=== PATIENT | male | born 1990 | race Caucasian/White ===

== ENCOUNTER 2020-07-11 23:21 | Emergency (ER) | payer SELFPAY ==
[2020-07-11 23:35] VITALS: BP 135/80; TEMP 97.8; BMI 24.4
[2020-07-12 01:29] LABS: BASO % 1.2 % (0-2.0); EOS % 2.5 % (0-4.5); HEMATOCRIT 39.7 % (35.4-49); HEMOGLOBIN 13.5 GM/dL (11.7-16.9); LYMPH % 42.4 % (8-40); MCH 28.2 pg (25.7-33.7); MCHC 34.1 g/dl (32.0-35.9); MEAN CELL VOLUME 82.8 fl (80-96); MEAN PLT VOLUME 9.9 fl (7.5-11.1); MONO % 10.4 % (3.8-10.2); NEUT % 43.5 % (42.8-82.8); PLATELET COUNT 213 K/MM3 (134-434); RDW 12.6 % (11.9-15.9); WHITE BLOOD COUNT 6.4 K/mm3 (4.0-10.0)
[2020-07-12 01:57] LABS: CHLORIDE 102 mmol/L (98-107); POTASSIUM 4.1 mmol/L (3.5-5.1); SODIUM 136 mmol/L (136-145)
[2020-07-12 02:57] LABS: ALBUMIN 3.9 g/dl (3.4-5.0); ALK PHOS 59 U/L (45-117); ANION GAP 7 MMOL/L (8-16); BILIRUBIN,TOTAL 0.4 mg/dL (0.2-1); BLOOD UREA NITROGEN 23.8 mg/dL (7-18); CO2 28 mmol/L (21-32); GLUCOSE,RANDOM 110 mg/dL (74-106); SGOT/AST 27 U/L (15-37); SGPT/ALT 29 U/L (13-61); TOT PROT 7.1 g/dl (6.4-8.2)
[2020-07-12 03:32] VITALS: PULSE 79
== END 2020-07-12 03:32 | disposition home or self-care (01) ==
LOC: JER 23:21
DX: R07.89 Other chest pain (principal)
CPT/HCPCS: 36415; 80053; 84484; 85025; 93005; 93010; 99284-25

== ENCOUNTER 2024-08-25 11:32 | Emergency (ER) | payer BC, OTHER ==
[2024-08-25 11:41] VITALS: RESP 18; BMI 23.7
[2024-08-25 12:56] LABS: ABSOLUTE IMMATURE GRANULOCYTES 0.01 x10^3/uL (0.0-0.031); BASOPHILS # 0.07 x10^3/uL (0.01-0.08); EOSINOPHIL % 3.4 % (0.8-7.0); EOSINOPHILS # 0.16 x10^3/uL (0.04-0.54); HEMATOCRIT 46.4 % (40.1-51.0); HEMOGLOBIN 14.9 g/dL (13.7-17.5); MCHC 32.1 g/dl (32.3-36.5); MEAN CELL VOLUME 86.4 fl (79.0-92.2); MEAN PLT VOLUME 9.8 fl (9.4-12.4); MONOCYTE # 0.41 x10^3/uL (0.30-0.82); MONOCYTE % 8.7 % (5.3-12.2); PLATELET COUNT 230 x10^3/uL (163-337); RDW 11.9 % (12.0-15.6)
[2024-08-25 13:27] LABS: CALCIUM 9.7 mg/dL (8.5-10.1)
[2024-08-25 13:28] LABS: BLOOD UREA NITROGEN 15.7 mg/dL (7-18)
[2024-08-25 13:31] LABS: CREATININE 1.1 mg/dL (0.55-1.3)
[2024-08-25 13:33] LABS: BILIRUBIN,TOTAL 0.4 mg/dL (0.2-1); TOT PROT 7.3 g/dl (6.4-8.2)
[2024-08-25 14:19] LABS: HCV DIAGNOSTIC IN-HOUSE W/RFLX NON-REACTIVE (NONREACTIVE)
[2024-08-25 14:20] LABS: HIV INTERPRETATION NEGATIVE (NEGATIVE)
[2024-08-25] MEDS: SODIUM CHLORIDE 1,000 ML IV STA (14:26)
[2024-08-25 15:17] VITALS: BP 130/68; PULSE 78; TEMP 97.9
== END 2024-08-25 17:08 | disposition home or self-care (01) ==
LOC: JER 11:32
PROC: 3E0337Z Introduction of Electrolytic and Water Balance Substance into Peripheral Vein, Percutaneous Approach (ICD-10-PCS; principal; 2024-08-25)
DX: R55 Syncope and collapse (principal)
CPT/HCPCS: 0241U-QW; 36415; 70450-TC; 71045-TC-FY; 80053; 83735; 84484; 85025; 86803; 87389; 93005; 93010; 99285-25